=== PATIENT | female | born 1945 | race Caucasian/White ===

== ENCOUNTER 2021-05-12 11:08 | Inpatient (IN) | payer MEDICARE, OTHER ==
[~2021-05-12] VITALS: Ht 165.1 cm; Wt 61.7 kg
[~2021-05-12 11:08] MED LIST: ATIVAN1 MG PO; BUSPIRONE HCL7.5 MG PO; CARVEDILOL3.125 MG PO; EVISTA PO; EVISTA60 MG PO; IBUPROFEN 600600 M1 PO; SIMVASTATIN20 MG PO
[2021-05-12 11:13] VITALS: BP 161/68
[2021-05-12] MEDS ORDERED: MELOXICAM15 MG PO (11:15)
[2021-05-12] MEDS ORDERED: COZAAR 25 MG TA25 M1 PO (11:15)
[2021-05-12] MEDS ORDERED: EVISTA60 MG PO (11:15)
[2021-05-12] MEDS ORDERED: DESYREL150 MG PO (11:16)
[2021-05-12 11:55] LABS: ABSOLUTE LYMPHOCYTES 0.5 thou/uL (0.8-5.3); ABSOLUTE MONOCYTES 0.3 thou/uL (0.0-1.2); ABSOLUTE NEUTROPHILS 3.8 thou/uL (1.6-8.1); BASOPHILS 0.5 %; HEMATOCRIT 35.9 % (37.0-47.0); HEMOGLOBIN 12.3 gm/dL (12.0-15.0); LYMPHOCYTES 10.9 %; MCH 31.3 pg (26.0-34.0); MCHC 34.3 g/dL (28.0-37.0); MCV 91.2 fL (80.0-100.0); MONOCYTES 6.7 %; MPV 6.6 fl. (7.2-11.1); NUCLEATED RBCS 0 /100WBC; PLATELET COUNT* 282 thou/uL (150-400); POLYS 81.9 %; RBC 3.94 mil/uL (4.20-5.00); RDW-CV 12.7 % (10.5-14.5); WBC 4.6 thou/uL (4.0-11.0)
[2021-05-12 12:05] LABS: CALCIUM 8.7 mg/dL (8.5-10.1); CREATININE 0.7 mg/dL (0.6-1.3); POTASSIUM 3.5 mmol/L (3.5-5.1)
[2021-05-12 12:10] LABS: ALBUMIN 3.4 g/dL (3.4-5.0); TOTAL BILIRUBIN 0.4 mg/dL (<0.1-1.0); TOTAL PROTEIN 7.2 g/dL (6.4-8.2)
--- NOTE | 2021-05-12 16:36 | EKG ---
[place] [address] ELECTROCARDIOGRAM REPORT Name: TYLER BURLESON Room: [place] [address] ADM IN .R.#: [id number] Admission: 05/12/21 Attend Phys: Caridad Harmon, Discharge: Date of : 41 Date of Service: 05/12/21 1119 Report #: [id number] THIS REPORT FOR: //name// [facility] ED Test Date: 2021-05-12 Test Time: 11:19:11 Pat Name: TYLER BURLESON Department: Room: [facility] Gender: F Gis Technician: DSDae : 1945 Requested By: Irineo Herrera Order Number: [id number] MD: Benjamin Cherry Measurements Intervals [place] Rate: 74 P: 86 VT: 175 QRS: 68 QRSD: 101 T: 47 QT: 450 QTc: 500 Interpretive Statements Sinus rhythm Atrial premature complex Borderline prolonged QT interval Compared to ECG 02/23/2015 19:19:25 Atrial premature complex(es) now present Electronically Signed On 05-12-2021 16:36:32 CDT by Benjamin Cherry [email or web address] <ELECTRONICALLY SIGNED> By: Benjamin Cherry MD, [facility] 05/12/21 1636 1119 1119 Benjamin Cherry MD, [facility] /EPI
[2021-05-12 18:17] VITALS: BP 176/84
[2021-05-12 20:00] VITALS: BP 171/82
--- NOTE | 2021-05-12 20:00 | NUR ---
RECEIVED REPORT AND ASSUMED CARE OF PT, ASSESSMENT COMPLETED. SEE ADMISSION ASSESSMENT AND HX. PT ANXIOUS ABOUT HER BP 171/82, EXPLAINED ELEVATED BUT NOT TO BAD. TELEMETRY ON SHOWING SR. WILL CONT TO MONITOR AND ASSIST NEEDED.
[2021-05-12 23:50] VITALS: BP 106/47
[2021-05-13 04:00] VITALS: BP 108/50
[2021-05-13 06:41] LABS: URINE BILIRUBIN NEGATIVE (Negative); URINE BLOOD NEGATIVE (Negative); URINE CLARITY CLEAR; URINE COLOR YELLOW; URINE GLUCOSE-RANDOM NEGATIVE (Negative); URINE KETONES TRACE (Negative); URINE LEUKOCYTES-REFLEX NEGATIVE (Negative); URINE NITRITE-REFLEX NEGATIVE (Negative); URINE PROTEIN NEGATIVE (Negative); URINE UROBILINOGEN 0.2 E.U./dl (0.2-1.0)
--- NOTE | 2021-05-13 07:12 | NUR ---
SLEPT WELL TONIGHT. ASSISTED TO BR WITH STEADY GAIT. DENIES DIZZINESS OR SYNCOPAL FEELING. NO CHANGE IN ASSESSMENT. TELEMETRY CONT TO SHOW SR. HS GOALS OF REST AND SAFETY ACHIEVED. HOURLY ROUNDING OBSERVED. PT IN COVID ISOLATION
[2021-05-13 08:00] VITALS: BP 139/68
[2021-05-13 10:33] LABS: HEMATOCRIT 32.9 % (37.0-47.0); HEMOGLOBIN 11.3 gm/dL (12.0-15.0); MCH 31.1 pg (26.0-34.0); MCHC 34.4 g/dL (28.0-37.0); MCV 90.3 fL (80.0-100.0); MPV 6.6 fl. (7.2-11.1); RBC 3.64 mil/uL (4.20-5.00); RDW-CV 12.7 % (10.5-14.5); WBC 5.8 thou/uL (4.0-11.0)
--- NOTE | 2021-05-13 10:37 | NUR ---
CM ASSESSMENT: PT COVID POSITIVE AND CURRENTLY UNDER ENHANCED PRECAUTIONS. CM SPOKE TO THE PT OVER THE HOSPITAL ROOM PHONE TO DISCUSS CM ASSESSMENT. PT A&O, NORMALLY INDEPENDENT WITH ADL'S, AND ACTIVE. PT RESIDES AT HOME ALONE. PT USES 0 DME, BUT INFORMS THAT SHE OWNS A WALKER AND A CANE FROM HER LATE . PT HAS 0 HX OF HH OR SNF. PT INFORMS THAT HER DTR ESTEPHANIE IS HER DPOA. CM AWAITING A RETURN CALL FROM ESTEPHANIE TO INFORM OF THE ROLE OF CM AND TO DISCUSS D/C PLANNING NEEDS. CM WILL REMAIN AVAILABLE TO ASSIST AND FOLLOW NEEDED.
[2021-05-13 10:42] LABS: CALCIUM 8.2 mg/dL (8.5-10.1); CREATININE 0.9 mg/dL (0.6-1.3); POTASSIUM 3.1 mmol/L (3.5-5.1)
--- NOTE | 2021-05-13 11:33 | 2DMMODE ---
[place] [address] 2 D/M-MODE ECHOCARDIOGRAM Name: TYLER BURLESON Room: [address] IN [facility]#: [id number] Admission: 05/12/21 Attend Phys: Caridad Harmon, Discharge: Date of : 41 Date of Service: 05/13/21 1133 Report #: [id number] THIS REPORT FOR: cc: Wander Alexander MD, Matthew W. MD Liston, Michael J. MD [facility] ~ APPROVED REPORT Study performed: 05/13/2021 10:05:44 EXAM: Comprehensive 2D, Doppler, and color-flow Echocardiogram Patient Location: In-Patient Room #: 224 Status: routine BSA: 1.67 HR: 68 bpm BP: 139/68 mmHg Rhythm: NSR Other Information Study Quality: Good Indications Syncope 2D Dimensions IVSd: 8.37 (7-11mm) LVOT Diam: 19.10 (18-24mm) LVDd: 40.59 mm PWd: 9.36 (7-11mm) Ascending Ao: 28.33 (22-36mm) LVDs: 21.89 (25-40mm) Aortic Root: 31.29 mm Volumes Left Atrial Volume (Systole) LA ESV Index: 19.90 mL/m2 Aortic Valve AoV Peak Virgilio.: 1.26 m/s AO Peak Gr.: 6.34 mmHg LVOT Max P.98 mmHg AO Mean Gr.: 3.26 mmHg LVOT Mean P.34 mmHg LVOT Max V: 1.12 m/s AO V2 VTI: 28.63 cm LVOT Mean V: 0.70 m/s SARAHI (VTI): 2.37 cm2 LVOT V1 VTI: 23.73 cm AI [place]: 1.91 m/s2 [place] [address] 2 D/M-MODE ECHOCARDIOGRAM Name: TYLER BURLESON Room: [address] IN ..#: [id number] Admission: 05/12/21 Attend Phys: aCridad Harmon, Discharge: Date of : 41 Date of Service: 05/13/21 1133 Report #: [id number] PHT: 533.57 ms Mitral Valve E/A Ratio: 1.10 MV Decel. Time: 258.99 ms MV E Max Virgilio.: 0.69 m/s MV PHT: 75.11 ms MVA (PHT): 2.93 cm2 TDI E/Lateral E': 9.86 E/Medial E': 7.67 Medial E' Virgilio.: 0.09 m/s Lateral E' Virgilio.: 0.07 m/s Pulmonary Valve PV Peak Virgilio.: 1.02 m/s PV Peak Gr.: 4.19 mmHg Left Ventricle The left ventricle is normal size. There is normal LV segmental wall motion. There is normal left ventricular wall thickness. Left ventricular systolic function is normal. LVEF is 60-65%. Transmitral Doppler flow pattern suggests impaired LV relaxation. Right Ventricle The right ventricle is normal size. The right ventricular systolic function is normal. Atria The left atrium size is normal. The right atrium size is normal. Aortic Valve The aortic valve is normal in structure. Mild aortic regurgitation. There is no aortic valvular stenosis. Mitral Valve The mitral valve is normal in structure. Mild mitral regurgitation. No evidence of mitral valve stenosis. Tricuspid Valve The tricuspid valve is normal in structure. Trace tricuspid regurgitation. Unable to assess PA pressure. Pulmonic Valve The pulmonary valve is normal in structure. There is no pulmonic [place] [address] 2 D/M-MODE ECHOCARDIOGRAM Name: TYLER BURLESON Room: [address]#: [id number] Admission: 05/12/21 Attend Phys: Caridad Harmon, Discharge: Date of : 41 Date of Service: 05/13/21 1133 Report #: [id number] [place] V[place]els The aortic root is normal in size. IVC is normal in size and collapses >50% with inspiration. Pericardium There is no pericardial effusion. <Conclusion> The left ventricle is normal size. There is normal left ventricular wall thickness. Left ventricular systolic function is normal. LVEF is 60-65%. Transmitral Doppler flow pattern suggests impaired LV relaxation. Mild aortic regurgitation. Mild mitral regurgitation. Trace tricuspid regurgitation. IVC is normal in size and collapses >50% with inspiration. <ELECTRONICALLY SIGNED> By: Kin Suggs MD, FACC 05/13/21 1133 1133 1133 Kin Suggs MD, FACC /INF
[2021-05-13 12:00] VITALS: BP 135/61
[2021-05-13 16:00] VITALS: BP 138/71; BP 160/72; BP 164/75
[2021-05-13 19:40] VITALS: BP 155/72
--- NOTE | 2021-05-13 23:33 | NUR ---
ASSUMED CARE OF PT AT 1900. PT IS ALERT AND ORIENTED. VSS. PERNORA. PT IS ON ROOM AIR. PT IS IN SINUS RYTHM ON THE TELEMETRY. PT IS RESTING COMFORTABLY IN BED. RESPIRATIONS ARE EVEN AND NONLABORED. WILL CONTINUE TO MONITOR PT.
[2021-05-14 00:04] VITALS: BP 128/61
[2021-05-14 04:00] VITALS: BP 127/68
[2021-05-14 04:23] LABS: HEMATOCRIT 30.6 % (37.0-47.0); HEMOGLOBIN 10.9 gm/dL (12.0-15.0); MCH 32.2 pg (26.0-34.0); MCHC 35.7 g/dL (28.0-37.0); MCV 90.3 fL (80.0-100.0); MPV 6.7 fl. (7.2-11.1); RBC 3.38 mil/uL (4.20-5.00); RDW-CV 12.7 % (10.5-14.5); WBC 5.7 thou/uL (4.0-11.0)
[2021-05-14 04:51] LABS: ALBUMIN 2.7 g/dL (3.4-5.0); CALCIUM 8.3 mg/dL (8.5-10.1); CREATININE 0.8 mg/dL (0.6-1.3); MAGNESIUM 2.2 mg/dL (1.8-2.4); TOTAL BILIRUBIN 0.3 mg/dL (<0.1-1.0); TOTAL PROTEIN 5.9 g/dL (6.4-8.2)
[2021-05-14 05:06] LABS: POTASSIUM 4.7 mmol/L (3.5-5.1)
[2021-05-14 09:06] VITALS: BP 147/70
[2021-05-14] MEDS ORDERED: PREDNISONE 10 M10 M1 PO (12:26)
[2021-05-14] MEDS ORDERED: HYDRALAZINE 2525 MG PO (12:28)
[2021-05-14] MEDS ORDERED: COMPAZINE10 M2 PO (12:57)
[2021-05-14 13:07] VITALS: BP 147/70
[2021-05-14 14:00] VITALS: BP 137/67
--- NOTE | 2021-05-14 14:33 | NUR ---
PATIENT LEFT VIA WHEEL CHAIR IN STABLE CONDITION WITH PRINTED SCRIPTS AND ALL BELONGINGS.
--- NOTE | 2021-05-14 15:48 | NUR ---
PHYSICIAN INFORMS OF PLAN FOR THE PT TO D/C HOME TODAY WITH SELF-CARE. NO CM D/C PLANNING NEEDS ANTICIPATED. CM WILL REMAIN AVAILABLE TO ASSIST AND FOLLOW NEEDED.
--- NOTE | 2021-05-16 19:44 | CON ---
[address] [address] CONSULTATION Name: SARAH BETHTYLER Roberto Room: [address] IN M.R.#: [id number] Admission: 05/12/21 Attend Phys: Caridad Harmon MD Discharge: 05/14/21 Date of : 41 Report #: [id number] THIS REPORT FOR: cc: Wander Alexander MD, Matthew W. MD Khosla, Parveen K. MD ~ DATE OF CONSULTATION: 05/13/2021 HISTORY OF PRESENT ILLNESS: This is a 76-year-old female patient who was evaluated by me for any neurological etiology for the patient's syncope. Before seeing the patient, I talked to Dr. Harmon and I reviewed the patient's notes. This patient had some generalized fatigue, some respiratory symptoms. She was just not feeling well. She was going to urgent care. Her blood pressure went up and then she passed out. She did not have any tonic-clonic activity. She is fully vaccinated according to her, but her COVID was found to be positive when she came to the hospital. REVIEW OF SYSTEMS: Indicate when she came to Emergency Room, her blood pressure was high, but not very high. The best I can tell is 161/68, although, some of the notes say it differently. She was hyponatremic. She was COVID positive. She has a history of hyperlipidemia and colon resection. That was a relevant 14-point review of system. PAST MEDICAL HISTORY: Positive for these spells which happened over a long period of time and she said she had about three of them over a period of several years. FAMILY HISTORY: Unremarkable. SOCIAL HISTORY: She says she does not smoke. PHYSICAL EXAMINATION: She was alert, responsive, able to follow simple and complex command. Cranial nerve examination was unremarkable. Her memory was at her baseline. She is competent to make a decision. Cranial nerve and neuromuscular examination looks symmetrical. There were no meningeal sign. She had some headache, which she says has disappeared. Cardiorespiratory examinations appear noncontributory. Blood pressure is 135/61, respirations 18, pulse is 72. LABORATORY DATA: Indicate a normal white count. She did have a CT scan of the head as well as a carotid Doppler and that appear unremarkable. IMPRESSION: Syncope. The etiology is not clear. I talked to the patient and recommended further workup. I was going to start with the MRI in this patient and the EEG. The patient is pretty adamant that [place] [address] CONSULTATION Name: TYLER BURLESON Room: [address]#: [id number] Admission: 05/12/21 Attend Phys: Caridad Harmon MD Discharge: 05/14/21 Date of : 41 Report #: [id number] neurological workup. She believes her symptoms were because of hyponatremia, hypertension and being COVID positive and she will not undergo any further testing. I discussed with her the reason for my recommendation, but she still declined any further testing. She is competent to make her decision and in this situation, I do not know what else can be done. I asked her to let the admitting doctor know if she changes her mind and wants further neurological testing and I will be happy to come back on the case and do those testing. However, presently she does not want that and therefore, I will sign off. Thank you, very much for this referral and if you have any questions, please feel free to contact me. <ELECTRONICALLY SIGNED> By: Ken Fernandez MD 05/16/21 1944 1536 02Ken Fernandez MD /nt
== END 2021-05-14 14:20 | disposition home or self-care (01) | DRG 178 ==
LOC: M.ERS 11:08 → M.2W 14:07 → M.TBA-ER 14:07 → M.2W 18:32 → M.ORTHSURG 05-13 13:17
PROVIDERS: Emergency Medicine Emergency Medical Services; ADMIT Internal Medicine; ATTEND Internal Medicine
DX: U07.1 COVID-19 (principal); E87.1 Hypo-osmolality and hyponatremia; R55 Syncope and collapse; I10 Essential (primary) hypertension; E87.6 Hypokalemia; E78.5 Hyperlipidemia, unspecified; Z88.0 Allergy status to penicillin; Z79.899 Other long term (current) drug therapy

== ENCOUNTER 2021-11-25 17:01 | Inpatient (IN) | payer MEDICARE, OTHER ==
[~2021-11-25] VITALS: Ht 167.6 cm; Wt 56.7 kg
[~2021-11-25 17:01] MED LIST changes: +COMPAZINE10 M2 PO; +COZAAR 25 MG TA25 M1 PO; +DESYREL150 MG PO; +HYDRALAZINE 2525 MG PO; +MELOXICAM15 MG PO; +PREDNISONE 10 M10 M1 PO
[2021-11-25 17:09] VITALS: BP 135/71
[2021-11-25 17:59] LABS: HEMOGLOBIN 12.8 gm/dL (12.0-15.0); MCH 30.6 pg (26.0-34.0); MCHC 32.9 g/dL (28.0-37.0); MPV 7.8 fl. (7.2-11.1); NUCLEATED RBCS 0 /100WBC; PLATELET COUNT* 211 thou/uL (150-400); RBC 4.19 mil/uL (4.20-5.00); RDW-CV 13.9 % (10.5-14.5)
[2021-11-25 18:10] LABS: CALCIUM 9.1 mg/dL (8.5-10.1); CREATININE 0.7 mg/dL (0.6-1.3); POTASSIUM 3.8 mmol/L (3.5-5.1)
[2021-11-25 18:15] LABS: ALBUMIN 3.8 g/dL (3.4-5.0); TOTAL BILIRUBIN 0.7 mg/dL (<0.1-1.0)
[2021-11-25 19:07] LABS: ABSOLUTE LYMPHOCYTES 0.6 thou/uL (0.8-5.3); ABSOLUTE MONOCYTES 0.8 thou/uL (0.0-1.2); ABSOLUTE NEUTROPHILS 14.6 thou/uL (1.6-8.1); PLATELET ESTIMATE ADEQUATE
[2021-11-25 20:10] LABS: URINE BILIRUBIN NEGATIVE (Negative); URINE BLOOD NEGATIVE (Negative); URINE CLARITY CLEAR; URINE COLOR YELLOW; URINE GLUCOSE-RANDOM NEGATIVE (Negative); URINE KETONES NEGATIVE (Negative); URINE LEUKOCYTES-REFLEX NEGATIVE (Negative); URINE NITRITE-REFLEX NEGATIVE (Negative); URINE PROTEIN NEGATIVE (Negative); URINE SPECIFIC GRAVITY 1.015 (1.005-1.030); URINE UROBILINOGEN 0.2 E.U./dl (0.2-1.0)
[2021-11-26] VITALS: BP 107/53
[2021-11-26 04:00] VITALS: BP 122/52
[2021-11-26 08:00] VITALS: BP 135/56
[2021-11-26] MEDS ORDERED: CALCIUM500 MG PO (09:28)
[2021-11-26] MEDS ORDERED: SUPER THERAVIT1 EACH PO (09:28)
[2021-11-26] MEDS ORDERED: FISH OIL 1,0001 EAC9 PO (09:28)
[2021-11-26] MEDS ORDERED: VITAMIN D310 MC2 PO (09:29)
--- NOTE | 2021-11-26 10:52 | NUR ---
Pt came to the ER with hyponatremia on 11/25/21. Met with pt to complete assessment. Pt is alert and oriented x 3. Pt lives in a house alone. Pt has no hx of HH/SNF/ or DME. Pt was previously independent with ADL's and Mobility. Pt fills her prescriptions at [email or web address] in [place], [place]. Pt just saw her PCP yesterday. CM to continue to follow for discharge needs.
[2021-11-26 10:55] LABS: CALCIUM 7.9 mg/dL (8.5-10.1); CREATININE 0.7 mg/dL (0.6-1.3); POTASSIUM 3.6 mmol/L (3.5-5.1)
[2021-11-26 10:56] LABS: APTT 26.7 Seconds (25.0-31.3); PROTIME 10.4 Seconds (9.20-11.50)
[2021-11-26 10:58] LABS: PHOSPHORUS* 2.6 mg/dL (2.5-4.9)
--- NOTE | 2021-11-26 11:13 | EKG ---
[place] [address] ELECTROCARDIOGRAM REPORT Name: TYLER BURLESON Room: [place] [address] ADM IN .R.#: [id number] Admission: 11/25/21 Attend Phys: Triston Booker Discharge: Date of : 41 Date of Service: 11/25/21 1750 Report #: [id number] THIS REPORT FOR: //name// [facility] ED Test Date: 2021-11-25 Test Time: 17:50:04 Pat Name: TYLERAgnes BURLESON Department: Room: [facility] Gender: F Packaging Inspector: CARMONA : 1945 Requested By: Laila Masters Order Number: [id number] MD: Benjamin Cherry Measurements Intervals [place] Rate: 102 P: 83 HI: 137 QRS: 94 QRSD: 94 T: 60 QT: 375 QTc: 489 Interpretive Statements Sinus tachycardia Probable left atrial enlargement Right axis deviation R wave progression V2 to V3 of uncertain cause; suspect lead misplacement Borderline prolonged QT interval Compared to ECG 05/12/2021 11:19:11 Right-axis deviation now present T-wave abnormality now present Sinus rate has increased Atrial premature complex(es) no longer present Electronically Signed On 11-26-2021 11:12:55 TECHNICAL INTERN by Benjamin Cherry [email or web address] <ELECTRONICALLY SIGNED> By: Benjamin Cherry MD, [facility] 11/26/21 1112 [id number] [phone] Benjamin Cherry MD, [facility] /EPI
[2021-11-26 12:00] VITALS: BP 140/66
[2021-11-26 14:15] VITALS: BP 140/66
[2021-11-26] MEDS ORDERED: DESYREL150 MG PO (16:04)
[2021-11-26 20:15] VITALS: BP 169/79
[2021-11-27] VITALS (8 sets, daily range): BP systolic 121–152; BP diastolic 50–69
--- NOTE | 2021-11-27 04:09 | NUR ---
PT A&O X 4. ON RA. MEDS GIVEN ORDERED. NO C/O PAIN. UP AD DARYA. SINUS RYTHM ON THE MONITOR. CALL LIGHT WITHIN REACH. WILL CONTINUE TO MONITOR.
[2021-11-27 08:52] LABS: ABSOLUTE EOSINOPHILS 0.1 thou/uL (0.0-0.7); ABSOLUTE LYMPHOCYTES 1.3 thou/uL (0.8-5.3); ABSOLUTE MONOCYTES 0.6 thou/uL (0.0-1.2); ABSOLUTE NEUTROPHILS 2.9 thou/uL (1.6-8.1); BASOPHILS 0.6 %; EOSINOPHILS 1.5 %; HEMATOCRIT 33.3 % (37.0-47.0); HEMOGLOBIN 11.3 gm/dL (12.0-15.0); LYMPHOCYTES 26.1 %; MCHC 33.8 g/dL (28.0-37.0); MCV 91.8 fL (80.0-100.0); MONOCYTES 12.9 %; MPV 7.6 fl. (7.2-11.1); NUCLEATED RBCS 0 /100WBC; PLATELET COUNT* 237 thou/uL (150-400); POLYS 58.9 %; RBC 3.63 mil/uL (4.20-5.00); RDW-CV 13.7 % (10.5-14.5)
[2021-11-27] MEDS ORDERED: COZAAR 25 MG TA25 M1 PO (08:53)
[2021-11-27] MEDS ORDERED: ZESTRIL5 MG PO (08:53)
[2021-11-27 08:56] LABS: CALCIUM 8.4 mg/dL (8.5-10.1); CREATININE 0.7 mg/dL (0.6-1.3); POTASSIUM 3.5 mmol/L (3.5-5.1)
--- NOTE | 2021-11-27 12:56 | NUR ---
PLAN FOR THIS PT TO D/C HOME TODAY HOME WITH SELF-CARE. NO CM D/C PLANNING NEEDS ANTICIPATED. CM WILL REMAIN AVAILABLE TO ASSIST AND FOLLOW NEEDED.
--- NOTE | 2021-11-27 12:57 | NUR ---
PT DISCHARGED HOME. COPY OF DISCHARGE PAPERWORK TO PT WITH EXPLAINATION. PT VERBALIZED UNDERSTANDING. IV ACCESS AND TELE MONTITOR REMOVED. PRESCRIPTIONS CALLED TO PT'S PHARMACY BY PHYSICIAN.
== END 2021-11-27 13:56 | disposition home or self-care (01) | DRG 305 ==
LOC: M.ERS 17:01 → M.TBA-ER 19:45 → M.2W 11-26 14:16
PROVIDERS: Internal Medicine; Student in an Organized Health Care Education/Training Program; ADMIT Internal Medicine; ATTEND Internal Medicine
DX: I16.1 Hypertensive emergency (principal); E87.1 Hypo-osmolality and hyponatremia; I10 Essential (primary) hypertension; E78.5 Hyperlipidemia, unspecified; M16.10 Unilateral primary osteoarthritis, unspecified hip; D72.829 Elevated white blood cell count, unspecified; I35.1 Nonrheumatic aortic (valve) insufficiency; Z20.822 Contact with and (suspected) exposure to COVID-19; Z60.2 Problems related to living alone; Z88.0 Allergy status to penicillin; Z88.2 Allergy status to sulfonamides; Z82.49 Family history of ischemic heart disease and other diseases of the circulatory system; Z86.16 Personal history of COVID-19